=== PATIENT | male | born 1950 | race African-American/Black ===

== ENCOUNTER → 2017-10-11 | Outpatient (CLI) | payer OTHER ==
--- NOTE | 2017-10-11 09:48 | PCVCIMAG ---
APPROVED REPORT Study performed: 10/11/2017 08:52:07 EXAM: Comprehensive 2D, Doppler, and color-flow Echocardiogram Patient Location: Echo lab Status: routine BSA: 1.94 HR: 62 bpmBP: 120/72 mmHg Rhythm: Pacemaker Other Information Study Quality: Good Indications Atrial Fibrillation Pacemaker Cardiomyopathy 2D Dimensions LVEF(%): 48.48 (>50%) IVSd: 13.14 (7-11mm) LVDd: 39.23 mm PWd: 12.20 (7-11mm)Ascending Ao: 37.61 (22-36mm) LVDs: 29.80 (25-40mm) Left Atrium: 35.17 (27-40mm) Aortic Root: 36.78 mm LV Single Plane 4CH: 51.32 % LV Single Plane 2CH: 52.80 %Phillips's LVEF: 52.06 % Biplane EF: 53.1 % Volumes Left Atrial Volume (Systole) Single Plane 4CH: 37.32 mLSingle Plane 2CH: 56.09 mL LA ESV Index: 26.00 mL/m2 Aortic Valve AoV Peak Tripp.: 1.09 m/s AO Peak Gr.: 4.77 mmHgLVOT Max P.07 mmHg LVOT Max V: 0.72 m/s Mitral Valve E/A Ratio: 0.9 MV Decel. Time: 197.47 ms MV E Max Tripp.: 0.43 m/s MV A Tripp.: 0.50 m/s MV PHT: 57.27 ms IVRT: 141.87 ms Pulmonary Valve PV Peak Tripp.: 0.74 m/sPV Peak Gr.: 2.19 mmHg Pulmonary Vein P Vein S: 0.26 m/sP Vein A: 0.27 m/s P Vein D: 0.31 m/sP Vein A Dur.: 138.4 msec P Vein S/D Ratio: 0.84 Tricuspid Valve TR Peak Tripp.: 2.13 m/s TR Peak Gr.: 18.20 mmHg Left Ventricle The left ventricle is normal size. There is normal LV segmental wall motion. Mild concentric left ventricular hypertrophy. Left ventricular systolic function is lower limits of normal. Discordant distal septal motion, probably from RV pacing LVEF 50%. Grade I - abnormal relaxation pattern. Right Ventricle The right ventricle is normal size. The right ventricular systolic function is normal. Pacemaker lead is present in the right ventricle. Atria The left atrium size is normal. Pacemaker lead is present in the right atrium. Aortic Valve The aortic valve is minimally sclerotic, trileaflet Mild aortic regurgitation. There is no aortic valvular stenosis. Mitral Valve The mitral valve is normal in structure. Mild mitral regurgitation. No evidence of mitral valve stenosis. Tricuspid Valve The tricuspid valve is normal in structure. Trace tricuspid regurgitation with PAP of 25 mmHg. Pulmonic Valve The pulmonary valve is normal in structure. There is no pulmonic valvular regurgitation. Great Vessels The aortic root is normal in size. IVC is normal in size and collapses with >50% inspiration Pericardium There is no pericardial effusion. <Conclusion> Left ventricular systolic function is lower limits of normal. Discordant distal septal motion, probably from RV pacing Mild concentric left ventricular hypertrophy. LVEF 50%. Grade I diastolic dysfunction The aortic valve is minimally sclerotic, trileaflet. Mild aortic regurgitation, no stenosis. The mitral valve is normal in structure. Mild mitral regurgitation. Pulmonary artery pressure of 25mmHg There is no pericardial effusion.
== END | disposition home or self-care (01) ==
LOC: PCVCIMAG 09:23
PROVIDERS: ATTEND Internal Medicine
DX: I08.0 Rheumatic disorders of both mitral and aortic valves (principal); I48.91 Unspecified atrial fibrillation; I42.9 Cardiomyopathy, unspecified; E78.5 Hyperlipidemia, unspecified; D86.9 Sarcoidosis, unspecified; Z95.0 Presence of cardiac pacemaker
CPT/HCPCS: 93306; J0690

== ENCOUNTER → 2018-06-27 | Outpatient (CLI) | payer OTHER | END | disposition home or self-care (01) | LOC: PCVCCLINIC 11:21 | PROVIDERS: ATTEND Internal Medicine | DX: Z51.81 Encounter for therapeutic drug level monitoring (principal); I25.10 Atherosclerotic heart disease of native coronary artery without angina pectoris; I10 Essential (primary) hypertension; E78.5 Hyperlipidemia, unspecified; Z95.0 Presence of cardiac pacemaker; Z79.01 Long term (current) use of anticoagulants | CPT/HCPCS: 85610 ==

== ENCOUNTER → 2018-08-22 | Outpatient (CLI) | payer OTHER | END | disposition home or self-care (01) | LOC: PCVCCLINIC 15:29 | PROVIDERS: ATTEND Internal Medicine | DX: Z51.81 Encounter for therapeutic drug level monitoring (principal); I25.10 Atherosclerotic heart disease of native coronary artery without angina pectoris; I48.0 Paroxysmal atrial fibrillation; I10 Essential (primary) hypertension; E78.5 Hyperlipidemia, unspecified; Z79.01 Long term (current) use of anticoagulants; Z95.0 Presence of cardiac pacemaker; Z88.8 Allergy status to other drugs, medicaments and biological substances | CPT/HCPCS: 85610 ==

== ENCOUNTER → 2018-09-18 | Outpatient (CLI) | payer OTHER | END | disposition home or self-care (01) | LOC: PCVCCLINIC 11:03 | PROVIDERS: ATTEND Internal Medicine Cardiovascular Disease | DX: Z51.81 Encounter for therapeutic drug level monitoring (principal); I25.10 Atherosclerotic heart disease of native coronary artery without angina pectoris; I44.2 Atrioventricular block, complete; I48.0 Paroxysmal atrial fibrillation; I10 Essential (primary) hypertension; E78.5 Hyperlipidemia, unspecified; Z88.8 Allergy status to other drugs, medicaments and biological substances; Z72.89 Other problems related to lifestyle; Z95.0 Presence of cardiac pacemaker; Z79.01 Long term (current) use of anticoagulants | CPT/HCPCS: 85610 ==

== ENCOUNTER → 2018-10-15 | Outpatient (CLI) | payer OTHER | END | disposition home or self-care (01) | LOC: PCVCCLINIC 10:12 | PROVIDERS: ATTEND Internal Medicine | DX: I10 Essential (primary) hypertension (principal); I42.9 Cardiomyopathy, unspecified; I48.0 Paroxysmal atrial fibrillation; I44.2 Atrioventricular block, complete; E78.5 Hyperlipidemia, unspecified; D86.9 Sarcoidosis, unspecified; R94.31 Abnormal electrocardiogram [ECG] [EKG]; Z95.0 Presence of cardiac pacemaker; Z88.8 Allergy status to other drugs, medicaments and biological substances; Z79.899 Other long term (current) drug therapy | CPT/HCPCS: 36415; 80061; 85610; 93005; 93280; G0463 ==

== ENCOUNTER → 2019-02-07 | Outpatient (CLI) | payer OTHER | END | disposition home or self-care (01) | LOC: PCVCCLINIC 14:25 | PROVIDERS: ATTEND Internal Medicine | DX: Z51.81 Encounter for therapeutic drug level monitoring (principal); I25.10 Atherosclerotic heart disease of native coronary artery without angina pectoris; I10 Essential (primary) hypertension; E78.5 Hyperlipidemia, unspecified; I48.0 Paroxysmal atrial fibrillation; Z79.01 Long term (current) use of anticoagulants | CPT/HCPCS: 36415; 85610 ==

== ENCOUNTER → 2019-03-28 | Outpatient (CLI) | payer OTHER | END | disposition home or self-care (01) | LOC: PCVCCLINIC 10:00 | PROVIDERS: ATTEND Internal Medicine | DX: Z51.81 Encounter for therapeutic drug level monitoring (principal); I25.10 Atherosclerotic heart disease of native coronary artery without angina pectoris; I48.0 Paroxysmal atrial fibrillation; I10 Essential (primary) hypertension; E78.5 Hyperlipidemia, unspecified; Z88.8 Allergy status to other drugs, medicaments and biological substances; Z79.01 Long term (current) use of anticoagulants | CPT/HCPCS: 36415; 85610 ==

== ENCOUNTER → 2019-04-04 | Outpatient (CLI) | payer OTHER | END | disposition home or self-care (01) | LOC: PCVCCLINIC 10:50 | PROVIDERS: ATTEND Internal Medicine | DX: Z51.81 Encounter for therapeutic drug level monitoring (principal); I25.10 Atherosclerotic heart disease of native coronary artery without angina pectoris; I48.0 Paroxysmal atrial fibrillation; I10 Essential (primary) hypertension; E78.5 Hyperlipidemia, unspecified; Z79.01 Long term (current) use of anticoagulants | CPT/HCPCS: 36415; 85610 ==

== ENCOUNTER → 2019-04-15 | Outpatient (CLI) | payer OTHER ==
--- NOTE | 2019-04-15 10:01 | PCVCIMAG ---
APPROVED REPORT Study performed: 04/15/2019 09:13:07 EXAM: Comprehensive 2D, Doppler, and color-flow Echocardiogram Patient Location: Echo lab Status: routine BSA: 1.94 HR: 61 bpm Rhythm: NSR Other Information Study Quality: Good Risk Factors: Cardiac Risk Factors: HTN, Hyperlipidemia Indications Atrial Fibrillation Pacemaker Sarcoidosis 2D Dimensions IVSd: 15.67 (7-11mm)LVOT Diam: 23.13 (18-24mm) LVDd: 27.09 mm PWd: 16.66 (7-11mm)Ascending Ao: 40.28 (22-36mm) LVDs: 19.95 (25-40mm) Left Atrium: 35.73 (27-40mm) Aortic Root: 34.04 mm LV Single Plane 4CH: 50.05 % LV Single Plane 2CH: 54.05 % Volumes Left Atrial Volume (Systole) Single Plane 4CH: 42.15 mLSingle Plane 2CH: 71.65 mL LA ESV Index: 28.00 mL/m2 Aortic Valve AoV Peak Tripp.: 1.04 m/s AO Peak Gr.: 4.46 mmHgLVOT Max P.18 mmHg LVOT Max V: 0.74 m/s JESUS Vmax: 2.97 cm2 AI Vmax: 3.56 m/s AI [place]: 1.60 m/s2 AI PHT: 643.38 ms Mitral Valve E/A Ratio: 1.0 MV Decel. Time: 231.48 ms MV E Max Tripp.: 0.44 m/s MV A Tripp.: 0.46 m/s TDI E/Lateral E': 6.29E/Medial E': 7.33 Medial E' Tripp.: 0.06 m/s Lateral E' Tripp.: 0.07 m/s Pulmonary Valve PV Peak Gr.: 1.23 mmHg Pulmonary Vein P Vein S: 0.46 m/sP Vein A: 0.34 m/s P Vein D: 0.35 m/sP Vein A Dur.: 96.9 msec P Vein S/D Ratio: 1.31 Tricuspid Valve TR Peak Tripp.: 2.89 m/s TR Peak Gr.: 33.30 mmHg Left Ventricle The left ventricle is normal size. There is normal LV segmental wall motion. Mild to moderate concentric left ventricular hypertrophy. Left ventricular systolic function is normal. The left ventricular ejection fraction is within the normal range. LVEF is 50%. Discordant distal septal motion, probably from right ventricular pacing The left ventricular diastolic function is normal. Right Ventricle The right ventricle is normal size. The right ventricular systolic function is normal. Pacemaker lead is present in the right ventricle. Atria The left atrium size is normal. Pacemaker lead is present in the right atrium. Aortic Valve The aortic valve is mildly sclerotic Mild aortic regurgitation. There is no aortic valvular stenosis. Mitral Valve The mitral valve is normal in structure. Mild mitral regurgitation. No evidence of mitral valve stenosis. Tricuspid Valve The tricuspid valve is normal in structure. There is no tricuspid valve regurgitation noted. Pulmonic Valve The pulmonary valve is normal in structure. There is no pulmonic valvular regurgitation. Great Vessels The aortic root is normal in size. IVC is normal in size and collapses >50% with inspiration. Pericardium There is no pericardial effusion. <Conclusion> Left ventricular systolic function is normal. There is normal LV segmental wall motion. Mild to moderate concentric left ventricular hypertrophy. LVEF is 50%. Discordant distal septal motion, probably from right ventricular pacing The aortic valve is mildly sclerotic. Mild aortic regurgitation, no stenosis. The mitral valve is normal in structure. Mild mitral regurgitation. Pulmonary artery pressure could not be reliably ascertained. There is no pericardial effusion.
== END | disposition home or self-care (01) ==
LOC: PCVCIMAG 08:58
PROVIDERS: ATTEND Internal Medicine
DX: I08.0 Rheumatic disorders of both mitral and aortic valves (principal); I48.0 Paroxysmal atrial fibrillation; D86.9 Sarcoidosis, unspecified
CPT/HCPCS: 93306

== ENCOUNTER → 2019-10-14 | Outpatient (CLI) | payer OTHER ==
[~2019-10-14] MED LIST: REGADENOSON 0.4 MG/5 ML DISP.SYRIN. IV ONE
--- NOTE | 2019-10-14 12:48 | PCVCIMAG ---
APPROVED REPORT Imaging Protocol: Rest Tc-99m/Stress Tc-99m 1 day Study performed: 10/14/2019 10:30:23 Indication: Cardiomyopathy, P-Atrial Fibrillation Patient Location: Out-Patient Stress Nurse: Cierra Chowdhury RN, Laurel Sharp RN [place] Tech:Shauna Baldwinfernie [facility] Ht: 5 ft 11 in Wt: 168 lbs BSA: 1.96 m2 HR: 70 bpm BP: 183/96 mmHg BMI: 23.4 Rhythm: Ventricular paced rhythm Medical History Medical History: Atrial Fibrillation, HTN, Hyperlipidemia, ICD Medications: Lisinopril, Metoprolol, Coumadin Allergies: Demerol Cardiac Risk Factors: Age Pretest Chest Pain Characteristics: No chest pain Meds Held (24 hrs): Metoprolol Resting Data Rest SPECT myocardial perfusion imaging was performed in supine position 45 minutes following the intravenous injection of 9.7 mCi of Tc-99m Sestamibi. Time of rest injection: 1000 Date: 10/14/2019 Administration Route: IV Administration Site: Right Arm Pharmacologic Stress Pharmacologic stress test was performed by injecting Regadenoson 0.4 mg IV push over 10-15 seconds immediately followed by the intravenous injection of 34.6 mCi of Tc-99m Sestamibi. Time of stress injection: 1100 Date: 10/14/2019 Administration Route: IV Administration Site: Right Arm Gated Stress SPECT was performed 45 minutes after stress injection. The images were gated to evaluate regional wall motion and calculate left ventricular ejection fraction. Stress Test Details Stress Test: Pharmacologic stress testing performed using 0.4 mg of regadenoson per 5 mL given IV over 10 seconds. Reason for pharmacologic stress test: physical limitation, pacemaker. HRMax Heart Rate (APMHR): 150 bpm Resting HR: 70 bpmTarget HR (85% APMHR): 127 bpm Max HR Achieved: 87 bpm % of APMHR: 58 Recovery HR: 77 bpm BP Resting BP: 183/96 mmHg Max BP: 195/95 mmHg Recovery BP: 185/92 mmHg ECG Resting ECG: Ventricular paced rhythm Stress ECG: Ventricular paced rhythm ST Change: Nondiagnostic V-pacing Arrhythmia: None Recovery ECG: Ventricular paced rhythm Recovery ST Change: Nondiagnostic V-pacing Clinical Reason for Termination: Completed protocol Stress Symptoms: Dyspnea Symptoms resolved during recovery. Stress ECG Conclusion Clinical: Non-ischemic ECG: Nondiagnostic due to ventricular pacing Study Quality Study: Good Study Data Post stress, the left ventricular ejection was 28%.. SSS: 6 SRS: 6 SDS: 1 TID = 0.96. Perfusion No evidence of stress induced ischemia. 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 Wall Motion Global hypokinesis. Moderately severe decreased left ventricular systolic function. Nuclear Conclusion No evidence of stress induced ischemia. 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 Post stress, the left ventricular ejection was 28%. No prior study available for comparison. Interpreted by: Ellis Foster MD Electronically Approved: 10/14/2019 12:40:09 <Conclusion> Clinical: Non-ischemic ECG: Nondiagnostic due to ventricular pacing
== END | disposition home or self-care (01) ==
LOC: PCVCIMAG 09:46
PROVIDERS: ATTEND Internal Medicine
DX: I42.9 Cardiomyopathy, unspecified (principal); I48.0 Paroxysmal atrial fibrillation; I10 Essential (primary) hypertension; I44.2 Atrioventricular block, complete; E78.5 Hyperlipidemia, unspecified; I25.10 Atherosclerotic heart disease of native coronary artery without angina pectoris; D86.9 Sarcoidosis, unspecified; Z95.0 Presence of cardiac pacemaker; Z88.8 Allergy status to other drugs, medicaments and biological substances; Z79.899 Other long term (current) drug therapy; Z79.01 Long term (current) use of anticoagulants
CPT/HCPCS: 78452; 93017; A9500; J2785